=== PATIENT | female | born 1940 | race Caucasian/White ===

== ENCOUNTER → 2018-08-12 | Outpatient (CLI) | payer MEDICARE ==
[~2018-08-12] MED LIST: LOSA50TA14 PO; MULT-709 PO; WARF3TAB52 PO
[2018-08-12 16:01] LABS: BASOPHILS # (AUTO) 0.07 x10^3/uL (0-0.1); BASOPHILS % (AUTO) 1 % (0-1); EOSINOPHILS # (AUTO) 0.05 x10^3/uL (0-0.4); EOSINOPHILS % (AUTO) 1 % (1-7); LYMPHOCYTES # (AUTO) 1.72 x10^3/uL (1-3.4); LYMPHOCYTES % (AUTO) 24 % (22-44); MD NO; MEAN CORPUSCULAR HGB CONC 33.3 g/dL (32.4-35.8); MONOCYTES # (AUTO) 0.29 x10^3/uL (0.2-0.8); MONOCYTES % (AUTO) 4 % (2-9); NEUTROPHILS # (AUTO) 4.95 x10^3/uL (1.8-6.8); NEUTROPHILS % (AUTO) 70 % (42-75); PLATELET COUNT 300 x10^3/uL (130-400); RED BLOOD COUNT 4.94 x10^6/uL (3.82-5.3)
[2018-08-12 16:10] LABS: ALANINE AMINOTRANSFERASE 21 U/L (12-78); ALBUMIN 3.7 g/dL (3.4-5.0); ANION GAP 5 mmol/L (5-15); CHLORIDE 106 mmol/L (98-107); INTERNATIONAL NORMALIZED RATIO 1.62 (0.93-1.1); PROTHROMBIN TIME 16.7 Seconds (9.6-11.5)
[2018-08-12 16:18] LABS: ALKALINE PHOSPHATASE 121 U/L (45-117); BILIRUBIN,TOTAL 0.3 mg/dL (0.2-1.0); CREATININE 1.09 mg/dL (0.55-1.02); TOTAL PROTEIN 7.2 g/dL (6.4-8.2)
== END | disposition home or self-care (01) ==
LOC: STAR 14:23
PROVIDERS: ATTEND Orthopaedic Surgery
DX: Z01.818 Encounter for other preprocedural examination (principal); M19.011 Primary osteoarthritis, right shoulder
CPT/HCPCS: 36415; 80053; 85025; 85610; 85730; 93005

== ENCOUNTER 2018-08-26 06:45 | Inpatient (IN) | payer MEDICARE ==
[~2018-08-26] VITALS: Ht 167.6 cm; Wt 65.0 kg
[~2018-08-26 06:45] MED LIST changes: +BUPIVACAINE LIPOSOME/PF 10ML INFIL ONE; +CLINDAMYCIN 150 MG/ML, 6ML ONE
[2018-08-26] MEDS ORDERED: D5%-0.45% NACL 1,000 ML IV SCH (07:02)
[2018-08-26 07:16] VITALS: BP 163/73
[2018-08-26] MEDS ORDERED: LACTATED RINGERS 1,000 ML IV SCH (07:22)
[2018-08-26] MEDS ORDERED: ONDANSETRON 2MG/ML, 2ML IV PRN ×2 (07:30→10:30)
[2018-08-26] MEDS ORDERED: DIPHENHYDRAMINE 25 MG CAPSULE PO PRN (07:30)
[2018-08-26] MEDS ORDERED: morphine SULFATE 10 MG/ML, 1ML IV PRN (07:30)
[2018-08-26] MEDS ORDERED: PROMETHAZINE 25 MG/ML, 1ML IM PRN (07:30)
[2018-08-26] MEDS ORDERED: ACETAMINOPHEN 325 MG TABLET PO PRN ×2 (07:30→10:30)
[2018-08-26] MEDS: KETOROLAC 30 MG/1 ML IV SCH ×2 (07:30→14:43)
[2018-08-26] MEDS ORDERED: MIDAZOLAM 1 MG/ML, 2ML ONE (07:56)
[2018-08-26] MEDS ORDERED: FENTANYL PF 100 MCG/2ML ONE (07:56)
[2018-08-26 08:06] LABS: PROTHROMBIN TIME 10.5 Seconds (9.6-11.5)
[2018-08-26] MEDS ORDERED: DOCUSATE 100 MG CAPSULE PO SCH (09:00)
[2018-08-26] MEDS ORDERED: MULTIVITAMINS/MINERALS TABLET PO SCH (09:00)
[2018-08-26] MEDS ORDERED: OXYcodone 5 MG/5 ML ORAL.SOL UDC PO PRN (10:30)
[2018-08-26] MEDS ORDERED: FENTANYL PF 100 MCG/2ML IV PRN (10:30)
[2018-08-26] MEDS ORDERED: MIDAZOLAM 1 MG/ML, 2ML IV PRN (10:30)
[2018-08-26] MEDS ORDERED: KETOROLAC 30 MG/1 ML IV PRN (10:30)
[2018-08-26] MEDS ORDERED: METOPROLOL 1 MG/ML, 5ML IV PRN (10:30)
[2018-08-26] MEDS ORDERED: HYDROmorphone 2 MG/ML, 1ML IVPush PRN (10:30)
[2018-08-26] MEDS ORDERED: hydrALAzine 20 MG/ML, 1ML IV PRN (10:30)
[2018-08-26] MEDS ORDERED: MEPERIDINE/PF 25MG/0.5ML IVPush PRN (10:30)
[2018-08-26] MEDS ORDERED: ALBUTEROL/IPRATROPIUM 2.5MG/0.5MG, 3 ML NPPB PRN (10:30)
[2018-08-26] MEDS ORDERED: NEOSTIGMINE 1 MG/ML, 10ML ONE (10:35)
[2018-08-26] MEDS ORDERED: PROPOFOL 10 MG/ML, 20ML ONE (10:35)
[2018-08-26] MEDS ORDERED: ROCURONIUM 10MG/ML,5ML ONE (10:35)
[2018-08-26] MEDS ORDERED: LIDOCAINE-MPF 2% ,5ML ONE (10:35)
[2018-08-26] MEDS ORDERED: BUPIVACAINE/PF 0.25% ONE (10:35)
[2018-08-26] MEDS ORDERED: ONDANSETRON 2MG/ML, 2ML ONE (10:35)
[2018-08-26] MEDS ORDERED: DEXAMETHASONE 4 MG/ML, 1ML ONE (10:35)
[2018-08-26] MEDS ORDERED: GLYCOPYRROLATE 0.2MG/1ML, 5ML ONE (10:35)
[2018-08-26] MEDS ORDERED: CEFAZOLIN 1,000 MG ONE (10:35)
[2018-08-26] MEDS: OXYcodone IR 5MG TABLET PO SCH ×2 (11:00→14:43)
[2018-08-26] MEDS ORDERED: hydrALAzine 20 MG/ML, 1ML ONE (11:37)
[2018-08-26] MEDS ORDERED: WARFARIN 3 MG TABLET PO-COUM SCH (14:00)
[2018-08-26 14:08] VITALS: BP 123/72
[2018-08-26 15:33] VITALS: BP 95/60
[2018-08-26] MEDS ORDERED: CEFAZOLIN PMX 1GM/50ML 50 ML IVPB SCH (19:00)
== END 2018-08-26 16:13 | disposition home or self-care (01) | DRG 483 ==
LOC: ORIP 06:45 → DCLOUNGE 12:55 → ORIP 12:55 → 4NOR 14:04 → DCLOUNGE 16:05
PROVIDERS: ADMIT Orthopaedic Surgery; ATTEND Orthopaedic Surgery
PROC: 3E0T3BZ Introduction of Anesthetic Agent into Peripheral Nerves and Plexi, Percutaneous Approach (ICD-10-PCS; 2018-08-26)
PROC: 0RRJ00Z Replacement of Right Shoulder Joint with Reverse Ball and Socket Synthetic Substitute, Open Approach (ICD-10-PCS; principal; 2018-08-26 09:30)
DX: M75.101 Unspecified rotator cuff tear or rupture of right shoulder, not specified as traumatic (principal); I10 Essential (primary) hypertension; I48.91 Unspecified atrial fibrillation; F17.200 Nicotine dependence, unspecified, uncomplicated; L98.9 Disorder of the skin and subcutaneous tissue, unspecified; M12.9 Arthropathy, unspecified; M65.9 Synovitis and tenosynovitis, unspecified
CPT/HCPCS: 36415; 85610; 85730; C1713; C1776; J0690; J1100; J2250; J2405; J2704; J2710; J3010; J3490; C1769; J0360; J7120